=== PATIENT | female | born 1975 | race Caucasian/White ===

== ENCOUNTER → 2020-04-26 | Day surgery (SDC) | payer BC ==
--- NOTE | 2020-04-29 14:34 | OP ---
DATE OF OPERATION: 04/26/2020 PREOPERATIVE DIAGNOSIS: Bilateral adenopathy. POSTOPERATIVE DIAGNOSIS: Bilateral adenopathy. PROCEDURE: Left axillary node ultrasound-guided core biopsy without clip placement. ANESTHESIA: Local. ATTENDING SURGEON: Lincoln Emmanuel MD ESTIMATED BLOOD LOSS: Minimal. COMPLICATIONS: None. PROCEDURE: Patient was made aware of the risks and benefits of the procedure and consented. She was placed in the supine position. Under sterile conditions with 2% lidocaine for local anesthesia small micky was made in the skin. Using a 13-gauge suction biopsy device via inferolateral approach under ultrasound guidance multiple cores were obtained and submitted to Pathology. Since the lymph node was still prominent and this was a bilateral process, no clip was placed at this time. Patient tolerated the procedure well. Steri-Strips and a sterile bandage were applied. We will contact her with the results. LINCOLN EMMANUEL M.D. [id number]
--- NOTE | 2020-05-08 09:59 | PATH ---
Surgical Pathology Report Patient Name: LEA MONTALVO [facility]. Rec. #: [id number] /Age/Gender: 1975 (Age: 44) / F Account: [id number] Location[facility] Taken: 04/26/2020 Received: 04/26/2020 Reported: 05/08/2020 Physicians: Lincoln Emmanuel M.D. Specimen(s) Received LEFT AXILLA CORE BIOPSY Clinical History Diffuse adenopathy Final Diagnosis Axilla, left, core biopsy: Lymph node with reactive features. No diagnostic evidence of malignancy. (See comment) Comment: This case was sent to [facility], [place], [place] for consultation and the above diagnosis was rendered there by Dr. Tirso Byrne. Please see also complete [facility] report ([id number]). Histology: Multiple portions of core lymph node biopsy tissue display a preserved architecture. There are small primary non-reactive follicles as well as scattered second reactive follicles. There is abundant interfollicular/paracortical tissue. The paracortical tissue is comprised of small, round, mature lymphocytes, interdigitating dendritic cells and post-capillary venules. Please see complete [facility] report for immunohistochemical work-up ([id number]). b-cell PCR gene rearrangement (IgH) analysis is negative for a clonal Igh gene rearrangement (see also complete b- clonality analysis report from [facility]: [id number]). Electronically Signed Laverne Borrero M.D. Gross Description Received in formalin labeled "left axilla biopsy," is a 1.7 x 1.4 x 0.3 cm aggregate of multiple pena-yellow, irregular to cylindrical portions of fibroadipose tissue. The formalin is filtered and the specimen is entirely submitted in one cassette. Time to formalin fixation: < 1 minute Total formalin fixation time: Approximately 6 hours. DL/04/26/2020 saudi/04/26/2020
== END | disposition home or self-care (01) ==
LOC: FRADUS-SUR 12:23
PROVIDERS: ATTEND Surgery Surgical Oncology
PROC: 07B63ZX Excision of Left Axillary Lymphatic, Percutaneous Approach, Diagnostic (ICD-10-PCS; principal; 2020-04-26)
PROC: BH41ZZZ Ultrasonography of Left Breast (ICD-10-PCS; 2020-04-26)
DX: R59.9 Enlarged lymph nodes, unspecified (principal)
CPT/HCPCS: 19083; 38505; 87899; 88305-TC